=== PATIENT | female | born 2000 | race Caucasian/White ===

== ENCOUNTER 2020-01-30 11:13 | Observation (INO) | payer OTHER ==
[~2020-01-30] VITALS: Ht 154.9 cm; Wt 69.4 kg
[2020-01-30] MEDS ORDERED: PRETAB PO (11:48)
[2020-01-30 12:00] VITALS: BP 127/69
== END 2020-01-30 13:50 | disposition home or self-care (01) ==
LOC: MLD 11:13
PROVIDERS: ADMIT Obstetrics & Gynecology; ATTEND Obstetrics & Gynecology
DX: O62.9 Abnormality of forces of labor, unspecified (principal); Z3A.38 38 weeks gestation of pregnancy
CPT/HCPCS: 59025; 76815; 81000; G0378